=== PATIENT | female | born 2000 | race Two or more races ===

== ENCOUNTER 2021-09-26 02:34 | Emergency (ER) | payer OTHER ==
--- NOTE | 2021-09-26 02:57 | ED Physician Documentation ---
History of Present Illness - Stated complaint Stated Complaint: L SHOULDER INJ - Chief complaint Chief Complaint: Trauma Ext - History obtained from History obtained from: Patient - Additonal information Additional information: The patient comes to the emergency department chief complaint of left shoulder pain and stiffness after an injury while moving a large dresser today. Patient states that while she was moving and holding the dresser, she felt a "give" in her shoulder and felt pain all over the left shoulder but more so in the anterior area. Patient states this happened around 1900 yesterday and that she has been holding the shoulder tensely since. She states that now, hurts all over her shoulder plus up into her neck and around her shoulder blade as well. She denies any feeling of popping or cracking. No prior injury to the shoulder. Review of Systems Ten Systems: 10 systems reviewed and negative Constitutional: reports: Reviewed and negative Eyes: reports: Reviewed and negative Ears: reports: Reviewed and negative Nose: reports: Reviewed and negative Throat: reports: Reviewed and negative Cardiac: reports: Reviewed and negative Respiratory: reports: Reviewed and negative GI: reports: Reviewed and negative : reports: Reviewed and negative Skin: reports: Reviewed and negative Musculoskeletal: reports: Joint pain Neurologic: reports: Reviewed and negative Psychiatric: reports: Reviewed and negative Endocrine: reports: Reviewed and negative Immunocompromised: reports: Reviewed and negative PD PAST MEDICAL HISTORY - Past Medical History Past Medical History: Yes Psych: Anxiety - Past Surgical History Past Surgical History: No - Present Medications Home Medications: Ambulatory Orders Medication Instructions Recorded Confirmed Cyclobenzaprine [Flexeril] 10 mg PO TID PRN #20 tablet 09/26/21 HYDROcod/ACETAM 5/325 [[place] 5/325] 1 - 2 tablet PO Q6H PRN #7 tablet 09/26/21 - Allergies Allergies/Adverse Reactions: Allergies Allergy/AdvReac Type Severity Reaction Status Date / Time No Known Drug Allergies Allergy Verified 09/26/21 02:42 - Social History Does the pt smoke?: Yes Smoking Status: Current every day smoker Does the pt drink ETOH?: No Does the pt have substance abuse?: No - Immunizations Immunizations are current?: Yes - POLST Patient has POLST: No PD ED PE NORMAL - Vitals Vital signs reviewed: Yes - General General: Alert and oriented X 3, No acute distress, Well developed/nourished, Other (The patient appears moderately uncomfortable but otherwise no apparent distress.) - HEENT HEENT: Atraumatic, PERRL, EOMI, Moist mucous membranes - Neck Neck: Supple, no meningeal sign, No bony TTP - Cardiac Cardiac: Strong equal pulses - Respiratory Respiratory: No respiratory distress - Derm Derm: Normal color, Warm and dry, No rash - Extremities Extremities: No deformity, No edema, Other (Left upper extremity held in flexion at the elbow and internal rotation. Tension throughout trapezius muscle with diffuse tenderness over entire shoulder. No bony deformity. Significant decrease in range of motion in all directions, secondary to pain.) - Neuro Neuro: Alert and oriented X 3 - Psych Psych: Normal mood, Normal affect Results - Vitals Vitals: Vital Signs - 24 hr 09/26/21 02:39 Temperature 36.7 C Heart Rate 107 H Respiratory 16 Rate Blood Pressure 140/96 H O2 Saturation 100 Oxygen O2 Source Room air - Rads (name of study) L shoulder XR Radiology: Final report received, EMP read indepedently, See rad report (neg) PD MEDICAL DECISION MAKING - ED course Complexity details: reviewed results, re-evaluated patient, considered differential, d/w patient ED course: The patient was treated symptomatically in the emergency department and sent for x-ray of the left shoulder. This was found to be negative. The patient was placed in a sling, though the importance of regular and frequent range of motion was emphasized to her. We discussed that if her shoulder is not noticeably better in the next 2 weeks, she should follow-up with her primary care physician to discuss further evaluation and management. Departure - Departure Disposition: 01 Home, Self Care Clinical Impression: Shoulder sprain Qualifiers: Encounter type: initial encounter Shoulder sprain type: unspecified sprain Laterality: left Qualified Code(s): S43.402A - Unspecified sprain of left shoulder joint, initial encounter Condition: Stable Instructions: ED Sprain Shoulder Prescriptions: Cyclobenzaprine [Flexeril] 10 mg PO TID PRN #20 tablet PRN Reason: Spasms HYDROcod/ACETAM 5/325 [[place] 5/325] 1 - 2 tablet PO Q6H PRN #7 tablet PRN Reason: Pain Comments: Your x-rays look great. The most likely scenario is that you have sprained your shoulder while attempting to move the heavy dresser this evening. This can cause pain and inflammation which can make it difficult to want to move your shoulder. However, it is very important that you regularly take your arm out of the sling and try to move it as best you can. You can do this by walking your fingers up the wall or by doing bent pot stirs like we have discussed. You may take the muscle relaxer and pain medication as needed for the next few days to help things loosen up. Please also ice your shoulder at least a couple of times a day to help with inflammation. You should make a follow-up appointment to see your doctor in case the shoulder is not significantly improved in the next couple of weeks. Please do not lift anything heavy until your shoulder is feeling completely back to normal. Your prescriptions have been electronically transmitted to [facility] in [place].
[2021-09-26] MEDS: HYDROcod/ACETAM 5/325 MG TABLET PO STA (03:05)
[2021-09-26] MEDS: CYCLOBENZAPRINE 10 MG TABLET PO STA (03:05)
[2021-09-26] MEDS: KETOROLAC 60 MG/2 ML VIAL IM STA (03:06)
[2021-09-26 03:32] VITALS: BP 130/72
--- NOTE | 2021-09-26 07:52 | XRAY Report ---
PROCEDURE: Shoulder 3 View LT INDICATIONS: injury/pain TECHNIQUE: 3 views of the shoulder were acquired. COMPARISON: None. FINDINGS: Bones: No fractures or dislocations. No suspicious bony lesions. Visualized ribs appear intact. Soft tissues: No suspicious soft tissue calcifications. IMPRESSION: Left shoulder without acute radiographic abnormalities or significant degenerative fortune e. No significant discrepancy with initial interpretation by overnight radiologist. Reviewed by: Wilder Dodge MD on 09/26/2021 7:51 AM PDT Approved by: Wilder Dodge MD on 09/26/2021 7:51 AM PDT Station ID: [id number]
== END 2021-09-26 03:31 | disposition home or self-care (01) ==
LOC: ED 02:34
DX: S43.402A Unspecified sprain of left shoulder joint, initial encounter (principal); X50.0XXA Overexertion from strenuous movement or load, initial encounter; Y93.89 Activity, other specified; F17.200 Nicotine dependence, unspecified, uncomplicated
CPT/HCPCS: 73030; 96372; 99282; 99283; A9270

== ENCOUNTER 2021-10-04 15:54 | Outpatient (CLI) | payer OTHER ==
[2021-10-04 18:37] LABS: BASOPHILS # (AUTO) 0.1 10^3/uL (0.0-0.1); BASOPHILS % (AUTO) 0.8 %; EOSINOPHILS % (AUTO) 0.4 %; HCT - HEMATOCRIT 41.4 % (37.0-47.0); HGB - HEMOGLOBIN 14.2 g/dL (12.0-16.0); LYMPHOCYTES # (AUTO) 1.6 10^3/uL (1.5-3.5); MEAN CORPUSCULAR HGB CONC 34.3 g/dL (32.0-36.0); MEAN CORPUSCULAR VOLUME 87.3 fL (81.0-99.0); MEAN PLATELET VOLUME 10.6 fL (7.9-10.8); MONOCYTES # (AUTO) 0.7 10^3/uL (0.0-1.0); MONOCYTES % (AUTO) 9.7 %; NEUTROPHILS # (AUTO) 5.1 10^3/uL (1.5-6.6); NEUTROPHILS % (AUTO) 67.8 %; PLT - PLATELET COUNT 434 10^3/uL (130-450); RED BLOOD COUNT 4.74 10^6/uL (4.20-5.40); RED CELL DISTRIBUTION WIDTH 12.3 % (12.0-15.0); WHITE BLOOD COUNT 7.5 x10^3/uL (4.8-10.8)
[2021-10-04 18:48] LABS: ALBUMIN 4.9 g/dL (3.2-5.5); ALBUMIN/GLOBULIN RATIO 1.4 (1.0-2.2); BILIRUBIN,TOTAL 1.4 mg/dL (0.2-1.0); CALCIUM 9.9 mg/dL (8.5-10.3); CREATININE 0.6 mg/dL (0.4-1.0); POTASSIUM 3.7 mmol/L (3.5-5.0); TOTAL PROTEIN 8.5 g/dL (6.7-8.2)
[2021-10-04 21:40] LABS: BILIRUBIN,URINE NEGATIVE (NEGATIVE); GLUCOSE, URINE (UA) NEGATIVE (NEGATIVE); KETONES,URINE (UA) NEGATIVE (NEGATIVE); LEUKOCYTE ESTERASE, URINE TRACE (NEGATIVE); NITRITE,URINE NEGATIVE (NEGATIVE); OCCULT BLOOD,URINE NEGATIVE (NEGATIVE); PH,URINE 7.5 PH (5.0-7.5); PROTEIN,URINE NEGATIVE (NEGATIVE); UROBILINOGEN,URINE 0.2 (NORMAL) E.U./dL (NORMAL)
[2021-10-04 21:47] LABS: CLARITY,URINE CLEAR (CLEAR)
[2021-10-04 21:48] LABS: BACTERIA,URINE Rare /HPF (None Seen); RBC,URINE 0-5 /HPF (0-5); SQUAMOUS EPITHELIAL CELL,UR FEW Squamous (<= Few); WBC,URINE 0-3 /HPF (0-5)
== END 2021-10-04 23:59 | disposition home or self-care (01) ==
LOC: LAB.N 15:54
PROVIDERS: ATTEND Physician Assistant
DX: R53.83 Other fatigue (principal); Z20.822 Contact with and (suspected) exposure to COVID-19
CPT/HCPCS: 36415; 80053; 81001; 84443; 85025; 87086

== ENCOUNTER 2021-10-05 20:11 | Emergency (ER) | payer OTHER ==
[2021-10-05] MEDS ORDERED: LORazepam 2 MG/ML VIAL IVP STA (20:44)
--- OUTSIDE RECORDS SUMMARY | 2021-10-05 20:48 | EXTERNAL MEDICAL SUMMARY RPT | Continuity of Care Document ---
:2001 Author Organization [facility] Address [address] [place] [address] Phone Care Team Providers Name Role Phone Chan JOAQUIN Unavailable Unavailable Jorje JOAQUIN Unavailable Unavailable RN, Ashley Graham Unavailable Unavailable Allergies No information. Encounters No information. Medications date description facility 20211004 meclizine All 20211004 ondansetron All 20211004 meclizine All 20211004 ondansetron All 20211004 meclizine All 20211004 ondansetron All Problems date description facility 20211004 COMPREHENSIVE METABOLIC PANEL All 20211004 CBC W/Diff/Plt All 20211004 Urinalysis with Microscopic Exam, Cultu re in Indicated All 20211004 TSH All 20211004 Other malaise and fatigue All 20211004 Other fatigue All 20211004 Fatigue All 20211004 COVID19 Testing All Procedures date description facility 20211004 COVID19 Testing All 20211004 CBC W/Diff/Plt All 20211004 POC HCG All 20211004 TSH All 20211004 POC URINALYSIS DIP All 20211004 COMPREHENSIVE METABOLIC PANEL All 20211004 COVID19 Testing All 20211004 CBC W/Diff/Plt All 20211004 POC HCG All 20211004 TSH All 20211004 POC URINALYSIS DIP All 20211004 COMPREHENSIVE METABOLIC PANEL All 20211004 COVID19 Testing All 20211004 CBC W/Diff/Plt All 20211004 POC HCG All 20211004 TSH All 20211004 POC URINALYSIS DIP All 20211004 COMPREHENSIVE METABOLIC PANEL All Results test status date ordered by attending specimen blu e urea_nitrogen_blood unknown 20211004 unknown unknown unk nown Erythrocytes_volume_in unknown 20211004 unknown unknown unknown _Blood_by_Automated_cou nt Erythrocyte_distributi unknown 20211004 unknown unknown unknown on_width_Ratio_by_Autom ated_count MCV_Entitic_volume_by_ unknown 20211004 unknown unknown unknown Automated_count MCH_Entitic_mass_by_Au unknown 20211004 unknown unknown unknown tomated_count Platelets_volume_in_Bl unknown 20211004 unknown unknown unknown ood_by_Automated_count Platelet_mean_volume_E unknown 20211004 unknown unknown unknown ntitic_volume_in_Blood_ by_[facility] neutrophil_count_blood unknown 20211004 unknown unknown unknown monocyte_count_blood unknown 20211004 unknown unknown un known lymphocyte_count_blood unknown 20211004 unknown unknown unknown Hemoglobin_Mass_volume unknown 20211004 unknown unknown unknown _in_Blood eosinophil_count_blood unknown 20211004 unknown unknown unknown Basophils_volume_in_Bl unknown 20211004 unknown unknown unknown ood_by_Manual_count leukocyte_count_blood unknown 20211004 unknown unknown u nknown erythrocyte_RBC_count unknown 20211004 unknown unknown u nknown Leukocytes_volume_in_B unknown 20211004 unknown unknown unknown lood_by_Automated_count Glomerular_Filtration_ unknown 20211004 unknown unknown unknown rate platelet_count unknown 20211004 unknown unknown unknown hemoglobin_blood unknown 20211004 unknown unknown unknow n hematocrit_blood unknown 20211004 unknown unknown unknow n potassium_blood unknown 20211004 unknown unknown unknown WBC_urine_on_microscop unknown 20211004 unknown unknown unknown y Urobilinogen_Presence_ unknown 20211004 unknown unknown unknown in_Urine_by_Test_strip Specific_gravity_of_Ur unknown 20211004 unknown unknown unknown ine_by_Test_strip pH_of_Urine_by_Test_st unknown 20211004 unknown unknown unknown rip Nitrite_Presence_in_Ur unknown 20211004 unknown unknown unknown ine_by_Test_strip Leukocyte_esterase_Pre unknown 20211004 unknown unknown unknown sence_in_Urine_by_Test_ strip Ketones_Mass_volume_in unknown 20211004 unknown unknown unknown _Urine_by_Test_strip Glucose_Mass_volume_in unknown 20211004 unknown unknown unknown _Urine_by_Test_strip Color_of_Urine unknown 20211004 unknown unknown unknown Bilirubin.total_Presen unknown 20211004 unknown unknown unknown ce_in_Urine_by_Test_str ip Appearance_of_Urine unknown 20211004 unknown unknown unk nown clarity_urine_point unknown 20211004 unknown unknown unk nown pH_study_of_acidity unknown 20211004 unknown unknown unk nown Glomerular_filtration_r unknown 20211004 unknown unknown unknown ate_1.73_sq_M.predicted _among_non-blacks_Volum e_Rate_Area_in_Serum_Pl asma_or_Blood_by_Creati nine-based_formula_MDRD _ Hematocrit_Volume_Frac unknown 20211004 unknown unknown unknown tion_of_Blood_by_Automa ted_count bilirubin_serum_total unknown 20211004 unknown unknown u nknown alanine_aminotransfera unknown 20211004 unknown unknown unknown se_SGPT_serum carbon_dioxide_serum_t unknown 20211004 unknown unknown unknown otal aspartate_aminotransfe unknown 20211004 unknown unknown unknown rase_SGOT_serum protein_total_serum unknown 20211004 unknown unknown unk nown blood_glucose unknown 20211004 unknown unknown unknown potassium_blood unknown 20211004 unknown unknown unknown glucose_urine unknown 20211004 unknown unknown unknown appearance_urine unknown 20211004 unknown unknown unknow n leukocyte_esterase_uri unknown 20211004 unknown unknown unknown ne_by_dipstick urobilinogen_urine_sem unknown 20211004 unknown unknown unknown iquantitative_dipstick_ specific_gravity_urine unknown 20211004 unknown unknown unknown pH_urine_semiquantitat unknown 20211004 unknown unknown unknown sean nitrite_urine_semiquan unknown 20211004 unknown unknown unknown titative ketones_urine_by_test_ unknown 20211004 unknown unknown unknown strip bilirubin_urine unknown 20211004 unknown unknown unknown mean_corpuscular_volum unknown 20211004 unknown unknown unknown e_RBC Urea_nitrogen_Mass_vol unknown 20211004 unknown unknown unknown ume_in_Serum_or_Plasma globulin_serum unknown 20211004 unknown unknown unknown Thyrotropin_Units_volu unknown 20211004 unknown unknown unknown me_in_Serum_or_Plasma alkaline_phosphatase_s unknown 20211004 unknown unknown unknown burak Sodium_Moles_volume_in unknown 20211004 unknown unknown unknown _Serum_or_Plasma thyroid_stimulating_ho unknown 20211004 unknown unknown unknown rmone_serum Protein_Mass_volume_in unknown 20211004 unknown unknown unknown _Serum_or_Plasma eosinophil_count_blood unknown 20211004 unknown unknown unknown anion_gap_serum unknown 20211004 unknown unknown unknown mean_platelet_volume unknown 20211004 unknown unknown un known urine_color unknown 20211004 unknown unknown unknown human_chorionic_gonado unknown 20211004 unknown unknown unknown tropin_urine_qualitativ e_urine_pregnancy_test_ basophil_count_blood unknown 20211004 unknown unknown un known monocyte_count_blood unknown 20211004 unknown unknown un known lymphocyte_count_blood unknown 20211004 unknown unknown unknown neutrophil_count_blood unknown 20211004 unknown unknown unknown Glucose_Mass_volume_in unknown 20211004 unknown unknown unknown _Urine Glucose_Mass_volume_in unknown 20211004 unknown unknown unknown _Serum_or_Plasma Globulin_Mass_volume_i unknown 20211004 unknown unknown unknown n_Serum Creatinine_Mass_volume unknown 20211004 unknown unknown unknown _in_Serum_or_Plasma Choriogonadotropin_pre unknown 20211004 unknown unknown unknown gnancy_test_Presence_in _Urine Chloride_Moles_volume_ unknown 20211004 unknown unknown unknown in_Serum_or_Plasma carbon_dioxide_serum_t unknown 20211004 unknown unknown unknown otal Calcium_Moles_volume_i unknown 20211004 unknown unknown unknown n_Serum_or_Plasma albumin_serum unknown 20211004 unknown unknown unknown Bilirubin.total_Mass_v unknown 20211004 unknown unknown unknown olume_in_Serum_or_Plasm a Aspartate_aminotransfe unknown 20211004 unknown unknown unknown rase_Enzymatic_activity _volume_in_Serum_or_Pla sma Anion_gap_4_in_Serum_o unknown 20211004 unknown unknown unknown r_Plasma creatinine_serum unknown 20211004 unknown unknown unknow n Alkaline_phosphatase_E unknown 20211004 unknown unknown unknown nzymatic_activity_volum e_in_Blood Albumin_Globulin_Mass_ unknown 20211004 unknown unknown unknown Ratio_in_Serum_or_Plasm a Albumin_Presence_in_Ur unknown 20211004 unknown unknown unknown ine Albumin_Mass_volume_in unknown 20211004 unknown unknown unknown _Serum_or_Plasma Alanine_aminotransfera unknown 20211004 unknown unknown unknown se_Enzymatic_activity_v olume_in_Serum_or_Plasm a mean_corpuscular_hemog unknown 20211004 unknown unknown unknown lobin_concentration_rbc RBC_urine_dipstick unknown [id number] unknown unknown unkn own sodium_serum unknown [id number] unknown unknown unknown albumin_globulin_ratio unknown [id number] unknown unknown unknown _serum Erythrocytes_area_in_U unknown [id number] unknown unknown unknown rine_sediment_by_Micros copy_high_power_field chloride_serum unknown [id number] unknown unknown unknown glucose_urine_semiquan unknown [id number] unknown unknown unknown titative protein_urine_semiquan unknown [id number] unknown unknown unknown titative_dipstick_ calcium_serum unknown [id number] unknown unknown unknown mean_corpuscular_hemog unknown [id number] unknown unknown unknown lobin_RBC red_blood_cell_distrib unknown [id number] unknown unknown unknown ution_width WBC_urine_on_microscop unknown [id number] unknown unknown unknown y T unknown [id number] unknown unknown unknown WBC_URINE unknown [id number] unknown unknown unknown UROBILINOGEN_URINE unknown [id number] unknown unknown unkn own SPECIFIC_GRAVITY_URINE unknown [id number] unknown unknown unknown T unknown [id number] unknown unknown unknown T unknown [id number] unknown unknown unknown T unknown [id number] unknown unknown unknown T unknown [id number] unknown unknown unknown T unknown [id number] unknown unknown unknown T unknown [id number] unknown unknown unknown T unknown [id number] unknown unknown unknown T unknown [id number] unknown unknown unknown T unknown [id number] unknown unknown unknown T unknown [id number] unknown unknown unknown T unknown [id number] unknown unknown unknown PH_URINE unknown [id number] unknown unknown unknown NITRITE_URINE unknown [id number] unknown unknown unknown LEUKOCYTE_ESTERASE_URI unknown [id number] unknown unknown unknown NE KETONES_URINE_UA_ unknown [id number] unknown unknown unkno wn GLUCOSE_URINE_UA_ unknown [id number] unknown unknown unkno wn COLOR_URINE unknown [id number] unknown unknown unknown CLARITY_URINE unknown [id number] unknown unknown unknown BILIRUBIN_URINE unknown [id number] unknown unknown unknown T unknown [id number] unknown unknown unknown T unknown [id number] unknown unknown unknown T unknown [id number] unknown unknown unknown T unknown [id number] unknown unknown unknown T unknown [id number] unknown unknown unknown T unknown [id number] unknown unknown unknown NEUTROPHILS_AUTO_ unknown [id number] unknown unknown unkno wn T unknown [id number] unknown unknown unknown T unknown [id number] unknown unknown unknown T unknown [id number] unknown unknown unknown MONOCYTES_AUTO_ unknown [id number] unknown unknown unknown T unknown [id number] unknown unknown unknown T unknown 20211004 unknown unknown unknown T unknown 20211004 unknown unknown unknown T unknown 20211004 unknown unknown unknown LYMPHOCYTES_AUTO_ unknown 20211004 unknown unknown unkno wn T unknown 20211004 unknown unknown unknown T unknown 20211004 unknown unknown unknown T unknown 20211004 unknown unknown unknown T unknown 20211004 unknown unknown unknown T unknown 20211004 unknown unknown unknown T unknown 20211004 unknown unknown unknown T unknown 20211004 unknown unknown unknown GFR_-_MDRD unknown 20211004 unknown unknown unknown T unknown 20211004 unknown unknown unknown EOSINOPHILS_AUTO_ unknown 20211004 unknown unknown unkno wn T unknown 20211004 unknown unknown unknown T unknown 20211004 unknown unknown unknown T unknown 20211004 unknown unknown unknown T unknown 20211004 unknown unknown unknown T unknown 20211004 unknown unknown unknown T unknown 20211004 unknown unknown unknown BILIRUBIN_TOTAL unknown 20211004 unknown unknown unknown BASOPHILS_AUTO_ unknown 20211004 unknown unknown unknown T unknown 20211004 unknown unknown unknown T unknown 20211004 unknown unknown unknown T unknown 20211004 unknown unknown unknown T unknown 20211004 unknown unknown unknown ALT_ALANINE_AMINOTRANS unknown 20211004 unknown unknown unknown FERASE ALKALINE_PHOSPHATASE unknown 20211004 unknown unknown un known T unknown 20211004 unknown unknown unknown T unknown 20211004 unknown unknown unknown ALBUMIN_GLOBULIN_RATIO unknown 20211004 unknown unknown unknown urea_nitrogen_blood unknown 20211004 unknown unknown unk nown Erythrocytes_volume_in unknown 20211004 unknown unknown unknown _Blood_by_Automated_cou nt Erythrocyte_distributi unknown 20211004 unknown unknown unknown on_width_Ratio_by_Autom ated_count MCV_Entitic_volume_by_ unknown 20211004 unknown unknown unknown Automated_count MCH_Entitic_mass_by_Au unknown 20211004 unknown unknown unknown tomated_count Platelets_volume_in_Bl unknown 20211004 unknown unknown unknown ood_by_Automated_count Platelet_mean_volume_E unknown 20211004 unknown unknown unknown ntitic_volume_in_Blood_ by_[facility] neutrophil_count_blood unknown 20211004 unknown unknown unknown monocyte_count_blood unknown 20211004 unknown unknown un known lymphocyte_count_blood unknown 20211004 unknown unknown unknown Hemoglobin_Mass_volume unknown 20211004 unknown unknown unknown _in_Blood eosinophil_count_blood unknown 20211004 unknown unknown unknown Basophils_volume_in_Bl unknown 20211004 unknown unknown unknown ood_by_Manual_count leukocyte_count_blood unknown 20211004 unknown unknown u nknown erythrocyte_RBC_count unknown 20211004 unknown unknown u nknown Leukocytes_volume_in_B unknown 20211004 unknown unknown unknown lood_by_Automated_count Glomerular_Filtration_ unknown 20211004 unknown unknown unknown rate platelet_count unknown 20211004 unknown unknown unknown hemoglobin_blood unknown 20211004 unknown unknown unknow n hematocrit_blood unknown 20211004 unknown unknown unknow n potassium_blood unknown 20211004 unknown unknown unknown WBC_urine_on_microscop unknown 20211004 unknown unknown unknown y Urobilinogen_Presence_ unknown 20211004 unknown unknown unknown in_Urine_by_Test_strip Specific_gravity_of_Ur unknown 20211004 unknown unknown unknown ine_by_Test_strip pH_of_Urine_by_Test_st unknown 20211004 unknown unknown unknown rip Nitrite_Presence_in_Ur unknown 20211004 unknown unknown unknown ine_by_Test_strip Leukocyte_esterase_Pre unknown 20211004 unknown unknown unknown sence_in_Urine_by_Test_ strip Ketones_Mass_volume_in unknown 20211004 unknown unknown unknown _Urine_by_Test_strip Glucose_Mass_volume_in unknown 20211004 unknown unknown unknown _Urine_by_Test_strip Color_of_Urine unknown 20211004 unknown unknown unknown Bilirubin.total_Presen unknown 20211004 unknown unknown unknown ce_in_Urine_by_Test_str ip Appearance_of_Urine unknown 20211004 unknown unknown unk nown clarity_urine_point unknown 20211004 unknown unknown unk nown pH_study_of_acidity unknown 20211004 unknown unknown unk nown Glomerular_filtration_r unknown 20211004 unknown unknown unknown ate_1.73_sq_M.predicted _among_non-blacks_Volum e_Rate_Area_in_Serum_Pl asma_or_Blood_by_Creati nine-based_formula_MDRD _ Hematocrit_Volume_Frac unknown 20211004 unknown unknown unknown tion_of_Blood_by_Automa ted_count bilirubin_serum_total unknown 20211004 unknown unknown u nknown alanine_aminotransfera unknown 20211004 unknown unknown unknown se_SGPT_serum carbon_dioxide_serum_t unknown 20211004 unknown unknown unknown otal aspartate_aminotransfe unknown 20211004 unknown unknown unknown rase_SGOT_serum protein_total_serum unknown 20211004 unknown unknown unk nown blood_glucose unknown 20211004 unknown unknown unknown potassium_blood unknown 20211004 unknown unknown unknown glucose_urine unknown 20211004 unknown unknown unknown appearance_urine unknown 20211004 unknown unknown unknow n leukocyte_esterase_uri unknown 20211004 unknown unknown unknown ne_by_dipstick urobilinogen_urine_sem unknown 20211004 unknown unknown unknown iquantitative_dipstick_ specific_gravity_urine unknown 20211004 unknown unknown unknown pH_urine_semiquantitat unknown 20211004 unknown unknown unknown sean nitrite_urine_semiquan unknown 20211004 unknown unknown unknown titative ketones_urine_by_test_ unknown 20211004 unknown unknown unknown strip bilirubin_urine unknown 20211004 unknown unknown unknown mean_corpuscular_volum unknown 20211004 unknown unknown unknown e_RBC Urea_nitrogen_Mass_vol unknown 20211004 unknown unknown unknown ume_in_Serum_or_Plasma globulin_serum unknown 20211004 unknown unknown unknown Thyrotropin_Units_volu unknown 20211004 unknown unknown unknown me_in_Serum_or_Plasma alkaline_phosphatase_s unknown 20211004 unknown unknown unknown burak Sodium_Moles_volume_in unknown 20211004 unknown unknown unknown _Serum_or_Plasma thyroid_stimulating_ho unknown 20211004 unknown unknown unknown rmone_serum Protein_Mass_volume_in unknown 20211004 unknown unknown unknown _Serum_or_Plasma eosinophil_count_blood unknown 20211004 unknown unknown unknown anion_gap_serum unknown 20211004 unknown unknown unknown mean_platelet_volume unknown 20211004 unknown unknown un known urine_color unknown 20211004 unknown unknown unknown human_chorionic_gonado unknown 20211004 unknown unknown unknown tropin_urine_qualitativ e_urine_pregnancy_test_ basophil_count_blood unknown 20211004 unknown unknown un known monocyte_count_blood unknown 20211004 unknown unknown un known lymphocyte_count_blood unknown 20211004 unknown unknown unknown neutrophil_count_blood unknown 20211004 unknown unknown unknown Glucose_Mass_volume_in unknown 20211004 unknown unknown unknown _Urine Glucose_Mass_volume_in unknown 20211004 unknown unknown unknown _Serum_or_Plasma Globulin_Mass_volume_i unknown 20211004 unknown unknown unknown n_Serum Creatinine_Mass_volume unknown 20211004 unknown unknown unknown _in_Serum_or_Plasma Choriogonadotropin_pre unknown 20211004 unknown unknown unknown gnancy_test_Presence_in _Urine Chloride_Moles_volume_ unknown 20211004 unknown unknown unknown in_Serum_or_Plasma carbon_dioxide_serum_t unknown 20211004 unknown unknown unknown otal Calcium_Moles_volume_i unknown 20211004 unknown unknown unknown n_Serum_or_Plasma albumin_serum unknown 20211004 unknown unknown unknown Bilirubin.total_Mass_v unknown 20211004 unknown unknown unknown olume_in_Serum_or_Plasm a Aspartate_aminotransfe unknown 20211004 unknown unknown unknown rase_Enzymatic_activity _volume_in_Serum_or_Pla sma Anion_gap_4_in_Serum_o unknown 20211004 unknown unknown unknown r_Plasma creatinine_serum unknown 20211004 unknown unknown unknow n Alkaline_phosphatase_E unknown 20211004 unknown unknown unknown nzymatic_activity_volum e_in_Blood Albumin_Globulin_Mass_ unknown 20211004 unknown unknown unknown Ratio_in_Serum_or_Plasm a Albumin_Presence_in_Ur unknown 20211004 unknown unknown unknown ine Albumin_Mass_volume_in unknown 20211004 unknown unknown unknown _Serum_or_Plasma Alanine_aminotransfera unknown 20211004 unknown unknown unknown se_Enzymatic_activity_v olume_in_Serum_or_Plasm a mean_corpuscular_hemog unknown 20211004 unknown unknown unknown lobin_concentration_rbc RBC_urine_dipstick unknown 20211004 unknown unknown unkn own sodium_serum unknown 20211004 unknown unknown unknown albumin_globulin_ratio unknown 20211004 unknown unknown unknown _serum Erythrocytes_area_in_U unknown 20211004 unknown unknown unknown rine_sediment_by_Micros copy_high_power_field chloride_serum unknown 20211004 unknown unknown unknown glucose_urine_semiquan unknown 20211004 unknown unknown unknown titative protein_urine_semiquan unknown 20211004 unknown unknown unknown titative_dipstick_ calcium_serum unknown 20211004 unknown unknown unknown mean_corpuscular_hemog unknown [id number] unknown unknown unknown lobin_RBC red_blood_cell_distrib unknown [id number] unknown unknown unknown ution_width WBC_urine_on_microscop unknown [id number] unknown unknown unknown y T unknown [id number] unknown unknown unknown WBC_URINE unknown [id number] unknown unknown unknown UROBILINOGEN_URINE unknown [id number] unknown unknown unkn own SPECIFIC_GRAVITY_URINE unknown [id number] unknown unknown unknown T unknown [id number] unknown unknown unknown T unknown [id number] unknown unknown unknown T unknown [id number] unknown unknown unknown T unknown [id number] unknown unknown unknown T unknown [id number] unknown unknown unknown T unknown [id number] unknown unknown unknown T unknown [id number] unknown unknown unknown T unknown [id number] unknown unknown unknown T unknown [id number] unknown unknown unknown T unknown [id number] unknown unknown unknown T unknown [id number] unknown unknown unknown PH_URINE unknown [id number] unknown unknown unknown NITRITE_URINE unknown [id number] unknown unknown unknown LEUKOCYTE_ESTERASE_URI unknown [id number] unknown unknown unknown NE KETONES_URINE_UA_ unknown [id number] unknown unknown unkno wn GLUCOSE_URINE_UA_ unknown [id number] unknown unknown unkno wn COLOR_URINE unknown [id number] unknown unknown unknown CLARITY_URINE unknown [id number] unknown unknown unknown BILIRUBIN_URINE unknown [id number] unknown unknown unknown T unknown [id number] unknown unknown unknown T unknown [id number] unknown unknown unknown T unknown [id number] unknown unknown unknown T unknown [id number] unknown unknown unknown T unknown [id number] unknown unknown unknown T unknown [id number] unknown unknown unknown NEUTROPHILS_AUTO_ unknown [id number] unknown unknown unkno wn T unknown [id number] unknown unknown unknown T unknown [id number] unknown unknown unknown T unknown [id number] unknown unknown unknown MONOCYTES_AUTO_ unknown [id number] unknown unknown unknown T unknown [id number] unknown unknown unknown T unknown [id number] unknown unknown unknown T unknown [id number] unknown unknown unknown T unknown [id number] unknown unknown unknown LYMPHOCYTES_AUTO_ unknown [id number] unknown unknown unkno wn T unknown [id number] unknown unknown unknown T unknown [id number] unknown unknown unknown T unknown [id number] unknown unknown unknown T unknown [id number] unknown unknown unknown T unknown [id number] unknown unknown unknown T unknown [id number] unknown unknown unknown T unknown [id number] unknown unknown unknown GFR_-_MDRD unknown [id number] unknown unknown unknown T unknown [id number] unknown unknown unknown EOSINOPHILS_AUTO_ unknown [id number] unknown unknown unkno wn T unknown 20211004 unknown unknown unknown T unknown 20211004 unknown unknown unknown T unknown 20211004 unknown unknown unknown T unknown 20211004 unknown unknown unknown T unknown 20211004 unknown unknown unknown T unknown 20211004 unknown unknown unknown BILIRUBIN_TOTAL unknown 20211004 unknown unknown unknown BASOPHILS_AUTO_ unknown 20211004 unknown unknown unknown T unknown 20211004 unknown unknown unknown T unknown 20211004 unknown unknown unknown T unknown 20211004 unknown unknown unknown T unknown 20211004 unknown unknown unknown ALT_ALANINE_AMINOTRANS unknown 20211004 unknown unknown unknown FERASE ALKALINE_PHOSPHATASE unknown 20211004 unknown unknown un known T unknown 20211004 unknown unknown unknown T unknown 20211004 unknown unknown unknown ALBUMIN_GLOBULIN_RATIO unknown 20211004 unknown unknown unknown Urobilinogen_Presence_ unknown 20211004 unknown unknown unknown in_Urine_by_Test_strip Specific_gravity_of_Ur unknown 20211004 unknown unknown unknown ine_by_Test_strip pH_of_Urine_by_Test_st unknown 20211004 unknown unknown unknown rip Nitrite_Presence_in_Ur unknown 20211004 unknown unknown unknown ine_by_Test_strip Leukocyte_esterase_Pre unknown 20211004 unknown unknown unknown sence_in_Urine_by_Test_ strip Ketones_Mass_volume_in unknown 20211004 unknown unknown unknown _Urine_by_Test_strip Glucose_Mass_volume_in unknown 20211004 unknown unknown unknown _Urine_by_Test_strip Color_of_Urine unknown 20211004 unknown unknown unknown Bilirubin.total_Presen unknown 20211004 unknown unknown unknown ce_in_Urine_by_Test_str ip Appearance_of_Urine unknown 20211004 unknown unknown unk nown appearance_urine unknown 20211004 unknown unknown unknow n leukocyte_esterase_uri unknown 20211004 unknown unknown unknown ne_by_dipstick urobilinogen_urine_sem unknown 20211004 unknown unknown unknown iquantitative_dipstick_ specific_gravity_urine unknown 20211004 unknown unknown unknown pH_urine_semiquantitat unknown 20211004 unknown unknown unknown sean nitrite_urine_semiquan unknown 20211004 unknown unknown unknown titative ketones_urine_by_test_ unknown 20211004 unknown unknown unknown strip bilirubin_urine unknown [id number] unknown unknown unknown urine_color unknown 20211004 unknown unknown unknown human_chorionic_gonado unknown 20211004 unknown unknown unknown tropin_urine_qualitativ e_urine_pregnancy_test_ Choriogonadotropin_pre unknown 20211004 unknown unknown unknown gnancy_test_Presence_in _Urine Albumin_Presence_in_Ur unknown 20211004 unknown unknown unknown ine RBC_urine_dipstick unknown 20211004 unknown unknown unkn own Erythrocytes_area_in_U unknown 20211004 unknown unknown unknown rine_sediment_by_Micros copy_high_power_field glucose_urine_semiquan unknown 20211004 unknown unknown unknown titative protein_urine_semiquan unknown 20211004 unknown unknown unknown titative_dipstick_ facility observation status value reference units lab code abn ormal line range notes All urea_nitroge unknown 8 unknown mg/dL _9 unknown unknown n_blood All Erythrocytes unknown 4.74 10 unknown _789-8 unknow n unknown _volume_in_Bl 6/UL ood_by_Automa ted_count All Erythrocyte_ unknown 12.3 unknown % _788-0 unknown unknown distribution_ width_Ratio_b y_Automated_c ount All MCV_Entitic_ unknown 87.3 unknown fL _787-2 unknown unknown volume_by_Aut omated_count All MCH_Entitic_ unknown 30.0 unknown pg _785-6 unknown unknown mass_by_Autom ated_count All Platelets_vo unknown 434 10 unknown _777-3 unknown unknown lume_in_Blood 3/UL _by_Automated _count All Platelet_mea unknown 10.6 unknown fL _776-5 unknown unknown n_volume_Enti tic_volume_in _Blood_by_Ree s-Ric All neutrophil_c unknown 5.1 10 unknown _752-6 unknown unknown ount_blood 3/UL All monocyte_cou unknown 0.7 10 unknown _743-5 unknown unknown nt_blood 3/UL All lymphocyte_c unknown 1.6 10 unknown _732-8 unknown unknown ount_blood 3/UL All Hemoglobin_M unknown 14.2 unknown g/dL _718-7 unknown unknown ass_volume_in _Blood All eosinophil_c unknown 0.0 10 unknown _712-0 unknown unknown ount_blood 3/UL All Basophils_vo unknown 0.1 10 unknown _705-4 unknown unknown lume_in_Blood 3/UL _by_Manual_co unt All leukocyte_co unknown 7.5 X10 unknown _68 unknow n unknown unt_blood 3/UL All erythrocyte_ unknown 4.74 10 unknown _67 unknow n unknown RBC_count 6/UL All Leukocytes_v unknown 7.5 X10 unknown _6690-2 unkno wn unknown olume_in_Bloo 3/UL d_by_Automate d_count All Glomerular_F unknown 127 unknown mL/mi _66455 unknown unknown iltration_rat n e All platelet_cou unknown 434 10 unknown _66 unknown unknown nt 3/UL All hemoglobin_b unknown 14.2 unknown g/dL _65 unknown unknown lood All hematocrit_b unknown 41.4 unknown % _64 unknown unknown lood All potassium_bl unknown 3.7 unknown meq/L _6298-4 unknow n unknown ood All WBC_urine_on unknown 0-3 /HPF unknown _5821-4 unkn own unknown _microscopy All Urobilinogen unknown 0.2 unknown _5818-0 unknow n unknown _Presence_in_ (NORMAL) Urine_by_Test _strip All Specific_gra unknown 1.010 unknown _5811-5 unknow n unknown vity_of_Urine _by_Test_stri p All pH_of_Urine_ unknown 8 unknown _5803-2 unknow n unknown by_Test_strip All Nitrite_Pres unknown NEGATIVE unknown _5802-4 unkn own unknown ence_in_Urine _by_Test_stri p All Leukocyte_es unknown TRACE unknown _5799-2 unknow n unknown terase_Presen ce_in_Urine_b y_Test_strip All Ketones_Mass unknown NEGATIVE unknown _5797-6 unkn own unknown _volume_in_Ur ine_by_Test_s trip All Glucose_Mass unknown negative unknown _5792-7 unkn own unknown _volume_in_Ur ine_by_Test_s trip All Color_of_Uri unknown YELLOW unknown _5778-6 unknow n unknown ne All Bilirubin.to unknown NEGATIVE unknown _5770-3 unkn own unknown tal_Presence_ in_Urine_by_T est_strip All Appearance_o unknown clear unknown _5767-9 unknow n unknown f_Urine All clarity_urin unknown CLEAR unknown _5589 unknown unknown e_point All pH_study_of_ unknown 7.5 unknown _51641 unknown unknown acidity All Glomerular_fi unknown 127 unknown mL/mi _48642-3 unkno wn unknown ltration_rate n _1.73_sq_M.pr edicted_among _non-blacks_V olume_Rate_Ar ea_in_Serum_P lasma_or_Bloo d_by_Creatini ne-based_form ula_MDRD_ All Hematocrit_V unknown 41.4 unknown % _4544-3 unknow n unknown olume_Fractio n_of_Blood_by _Automated_co unt All bilirubin_se unknown 1.4 unknown mg/dL _43 unknown unknown rum_total All alanine_amin unknown 13 unknown U/L _40 unknown unknown otransferase_ SGPT_serum All carbon_dioxi unknown 26 unknown mmol/ _3962 unknown unknown de_serum_tota L l All aspartate_am unknown 18 unknown U/L _39 unknown unknown inotransferas e_SGOT_serum All protein_tota unknown 8.5 unknown g/dL _36 unknown unknown l_serum All blood_glucos unknown 100 unknown mg/dL _3565 unknown unknown e All potassium_bl unknown 3.7 unknown meq/L _3483 unknown unknown ood All glucose_urin unknown NEGATIVE unknown _3369 unkno wn unknown e mg/dL All appearance_u unknown clear unknown _328 unknown unknown rine All leukocyte_es unknown TRACE unknown _327 unknown unknown terase_urine_ by_dipstick All urobilinogen unknown 0.2 unknown _326 unknown unknown _urine_semiqu (NORMAL) antitative_di pstick_ All specific_gra unknown 1.010 unknown _325 unknown unknown vity_urine All pH_urine_sem unknown 8 unknown _324 unknown unknown iquantitative All nitrite_urin unknown NEGATIVE unknown _323 unkno wn unknown e_semiquantit ative All ketones_urin unknown NEGATIVE unknown _322 unkno wn unknown e_by_test_str ip All bilirubin_ur unknown NEGATIVE unknown _319 unkno wn unknown ine All mean_corpusc unknown 87.3 unknown fL _315 unknown unknown ular_volume_R BC All Urea_nitroge unknown 8 unknown mg/dL _3094-0 unknow n unknown n_Mass_volume _in_Serum_or_ Plasma All globulin_ser unknown 3.6 unknown _3059 unknown unknown um All Thyrotropin_ unknown 0.53 unknown u[iU] _3016-3 unknow n unknown Units_volume_ /mL in_Serum_or_P lasma All alkaline_pho unknown 53 unknown U/L _3 unknown unknown sphatase_seru m All Sodium_Moles unknown 138 unknown mmol/ _2951-2 unknow n unknown _volume_in_Se L rum_or_Plasma All thyroid_stim unknown 0.53 unknown u[iU] _29 unknown unknown ulating_hormo /mL ne_serum All Protein_Mass unknown 8.5 unknown g/dL _2885-2 unknow n unknown _volume_in_Se rum_or_Plasma All eosinophil_c unknown 0.0 10 unknown _285 unknown unknown ount_blood 3/UL All anion_gap_se unknown 9.0 unknown _279 unknown unknown rum All mean_platele unknown 10.6 unknown fL _2784 unknown unknown t_volume All urine_color unknown YELLOW unknown _2751 unknown unknown All human_chorio unknown Negative unknown _2578 unkno wn unknown nic_gonadotro pin_urine_qua litative_urin e_pregnancy_t est_ All basophil_cou unknown 0.1 10 unknown _2427 unknown unknown nt_blood 3/UL All monocyte_cou unknown 0.7 10 unknown _2422 unknown unknown nt_blood 3/UL All lymphocyte_c unknown 1.6 10 unknown _2420 unknown unknown ount_blood 3/UL All neutrophil_c unknown 5.1 10 unknown _2418 unknown unknown ount_blood 3/UL All Glucose_Mass unknown NEGATIVE unknown _2350-7 unkn own unknown _volume_in_Ur mg/dL ine All Glucose_Mass unknown 100 unknown mg/dL _2345-7 unknow n unknown _volume_in_Se rum_or_Plasma All Globulin_Mas unknown 3.6 unknown _2336-6 unknow n unknown s_volume_in_S burak All Creatinine_M unknown 0.6 unknown mg/dL _2160-0 unknow n unknown ass_volume_in _Serum_or_Pla sma All Choriogonado unknown Negative unknown _2105- unkn own unknown tropin_pregna ncy_test_Pres ence_in_Urine All Chloride_Mol unknown 103 unknown mmol/ _2074-0 unknow n unknown es_volume_in_ L Serum_or_Plas ma All carbon_dioxi unknown 26 unknown mmol/ _2027- unknow n unknown de_serum_tota L l All Calcium_Mole unknown 9.9 unknown mg/dL _1999- unknow n unknown s_volume_in_S erum_or_Plasm a All albumin_seru unknown 4.9 unknown g/dL _2 unknown unknown m All Bilirubin.to unknown 1.4 unknown mg/dL _1974- unknow n unknown tal_Mass_volu me_in_Serum_o r_Plasma All Aspartate_am unknown 18 unknown U/L _1919- unknow n unknown inotransferas e_Enzymatic_a ctivity_volum e_in_Serum_or _Plasma All Anion_gap_4_ unknown 9.0 unknown _1863-0 unknow n unknown in_Serum_or_P lasma All creatinine_s unknown 0.6 unknown mg/dL _18 unknown unknown burak All Alkaline_pho unknown 53 unknown U/L _1783-0 unknow n unknown sphatase_Enzy matic_activit y_volume_in_B lood All Albumin_Glob unknown 1.4 unknown _1759-0 unknow n unknown ulin_Mass_Rat io_in_Serum_o r_Plasma All Albumin_Pres unknown negative unknown _1753-3 unkn own unknown ence_in_Urine All Albumin_Mass unknown 4.9 unknown g/dL _1751-7 unknow n unknown _volume_in_Se rum_or_Plasma All Alanine_amin unknown 13 unknown U/L _1742-6 unknow n unknown otransferase_ Enzymatic_act ivity_volume_ in_Serum_or_P lasma All mean_corpusc unknown 34.3 unknown g/dL _17029 unknown unknown ular_hemoglob in_concentrat ion_rbc All RBC_urine_di unknown non-hemol unknown _1700005 un known unknown pstick yzed trace All sodium_serum unknown 138 unknown mmol/ _159 unknown unknown L All albumin_glob unknown 1.4 unknown _146 unknown unknown ulin_ratio_se rum All Erythrocytes unknown non-hemol unknown _13945-1 un known unknown _area_in_Urin yzed trace e_sediment_by _Microscopy_h igh_power_fie ld All chloride_ser unknown 103 unknown mmol/ _13 unknown unknown um L All glucose_urin unknown negative unknown _123 unkno wn unknown e_semiquantit ative All protein_urin unknown negative unknown _118 unkno wn unknown e_semiquantit ative_dipstic k_ All calcium_seru unknown 9.9 unknown mg/dL _11 unknown unknown m All mean_corpusc unknown 30.0 unknown pg _1031 unknown unknown ular_hemoglob in_RBC All red_blood_ce unknown 12.3 unknown % _1030 unknown unknown ll_distributi on_width All WBC_urine_on unknown 0-3 /HPF unknown _1016 unkno wn unknown _microscopy All T unknown 7.5 X10 unknown WBC unknown unk nown 3/UL All WBC_URINE unknown 0-3 /HPF unknown UWBC unknown unknown All UROBILINOGEN unknown 0.2 unknown UUROBIL unknow n unknown _URINE (NORMAL) All SPECIFIC_GRA unknown 1.010 unknown USG unknown unknown VITY_URINE All T unknown 0-3 /HPF unknown UR_WBC unknown un known All T unknown 0.2 unknown UR_URO unknown unkn own (NORMAL) All T unknown 1.010 unknown UR_SG unknown unkn own All T unknown 7.5 unknown UR_PH unknown unkn own All T unknown NEGATIVE unknown UR_NIT unknown un known All T unknown TRACE unknown UR_LEU_E unknown un known STERASE All T unknown NEGATIVE unknown UR_KETO_ unknown unknown UA_ All T unknown NEGATIVE unknown UR_GLU unknown un known mg/dL All T unknown YELLOW unknown UR_COLOR unknown un known All T unknown CLEAR unknown UR_CLARI unknown un known TY All T unknown NEGATIVE unknown UR_BILI unknown u nknown All PH_URINE unknown 7.5 unknown UPH unknown un known All NITRITE_URIN unknown NEGATIVE unknown UNITRITE unk nown unknown E All LEUKOCYTE_ES unknown TRACE unknown ULEUK unknown unknown TERASE_URINE All KETONES_URIN unknown NEGATIVE unknown UKET unkno wn unknown E_UA_ All GLUCOSE_URIN unknown NEGATIVE unknown UGLUC unkno wn unknown E_UA_ mg/dL All COLOR_URINE unknown YELLOW unknown UCOL unknown unknown All CLARITY_URIN unknown CLEAR unknown UCLAR unknown unknown E All BILIRUBIN_UR unknown NEGATIVE unknown UBIL unkno wn unknown INE All T unknown 0.53 unknown u[iU] TSH unknown unkn own /mL All T unknown 1.4 unknown mg/dL TOTAL_BI unknown un known LI All T unknown 12.3 unknown % RDW unknown unkn own All T unknown 4.74 10 unknown RBC unknown unk nown 6/UL All T unknown 8.5 unknown g/dL PRO_TOTA unknown un known L All T unknown 434 10 unknown PLT unknown unkn own 3/UL All NEUTROPHILS_ unknown 5.1 10 unknown NE_ unknown unknown AUTO_ 3/UL All T unknown 5.1 10 unknown NEUT_AUT unknown un known 3/UL O_ All T unknown 138 unknown mmol/ NA unknown unkn own L All T unknown 10.6 unknown fL MPV unknown unkn own All MONOCYTES_AU unknown 0.7 10 unknown MO_ unknown unknown TO_ 3/UL All T unknown 0.7 10 unknown MONO_AUT unknown un known 3/UL O_ All T unknown 87.3 unknown fL MCV unknown unkn own All T unknown 34.3 unknown g/dL MCHC unknown unkn own All T unknown 30.0 unknown pg MCH unknown unkn own All LYMPHOCYTES_ unknown 1.6 10 unknown LY_ unknown unknown AUTO_ 3/UL All T unknown 1.6 10 unknown LYMPH_AU unknown un known 3/UL TO_ All T unknown 3.7 unknown meq/L K unknown unkn own All T unknown 14.2 unknown g/dL HGB unknown unkn own All T unknown 41.4 unknown % HCT unknown unkn own All T unknown 100 unknown mg/dL GLU unknown unkn own All T unknown 3.6 unknown GLOB unknown unkn own All T unknown 127 unknown mL/mi GFR_-_MD unknown un known n RD All GFR_-_MDRD unknown 127 unknown mL/mi GFR unknown unknown n All T unknown 9.0 unknown GAP unknown unkn own All EOSINOPHILS_ unknown 0.0 10 unknown EO_ unknown unknown AUTO_ 3/UL All T unknown 0.0 10 unknown EOS_AUTO unknown un known 3/UL _ All T unknown 0.6 unknown mg/dL CREAT unknown unkn own All T unknown 26 unknown mmol/ CO2 unknown unkn own L All T unknown 103 unknown mmol/ CL unknown unkn own L All T unknown 9.9 unknown mg/dL CA unknown unkn own All T unknown 8 unknown mg/dL BUN unknown unkn own All BILIRUBIN_TO unknown 1.4 unknown mg/dL BILIT unknown unknown SAVANNA All BASOPHILS_AU unknown 0.1 10 unknown BA_ unknown unknown TO_ 3/UL All T unknown 0.1 10 unknown BASO_AUT unknown un known 3/UL O_ All T unknown 1.4 unknown A_G_RATI unknown un known O All T unknown 18 unknown U/L AST unknown unkn own All T unknown 13 unknown U/L ALT_SGPT unknown un known _ All ALT_ALANINE_ unknown 13 unknown U/L ALT unknown unknown AMINOTRANSFER ASE All ALKALINE_PHO unknown 53 unknown U/L ALP unknown unknown SPHATASE All T unknown 53 unknown U/L ALK_PHOS unknown un known All T unknown 4.9 unknown g/dL ALB unknown unkn own All ALBUMIN_GLOB unknown 1.4 unknown AGRATIO unknow n unknown ULIN_RATIO All urea_nitroge unknown 8 unknown mg/dL _9 unknown unknown n_blood All Erythrocytes unknown 4.74 10 unknown _789-8 unknow n unknown _volume_in_Bl 6/UL ood_by_Automa ted_count All Erythrocyte_ unknown 12.3 unknown % _788-0 unknown unknown distribution_ width_Ratio_b y_Automated_c ount All MCV_Entitic_ unknown 87.3 unknown fL _787-2 unknown unknown volume_by_Aut omated_count All MCH_Entitic_ unknown 30.0 unknown pg _785-6 unknown unknown mass_by_Autom ated_count All Platelets_vo unknown 434 10 unknown _777-3 unknown unknown lume_in_Blood 3/UL _by_Automated _count All Platelet_mea unknown 10.6 unknown fL _776-5 unknown unknown n_volume_Enti tic_volume_in _Blood_by_Ree s-Ric All neutrophil_c unknown 5.1 10 unknown _752-6 unknown unknown ount_blood 3/UL All monocyte_cou unknown 0.7 10 unknown _743-5 unknown unknown nt_blood 3/UL All lymphocyte_c unknown 1.6 10 unknown _732-8 unknown unknown ount_blood 3/UL All Hemoglobin_M unknown 14.2 unknown g/dL _718-7 unknown unknown ass_volume_in _Blood All eosinophil_c unknown 0.0 10 unknown _712-0 unknown unknown ount_blood 3/UL All Basophils_vo unknown 0.1 10 unknown _705-4 unknown unknown lume_in_Blood 3/UL _by_Manual_co unt All leukocyte_co unknown 7.5 X10 unknown _68 unknow n unknown unt_blood 3/UL All erythrocyte_ unknown 4.74 10 unknown _67 unknow n unknown RBC_count 6/UL All Leukocytes_v unknown 7.5 X10 unknown _6690-2 unkno wn unknown olume_in_Bloo 3/UL d_by_Automate d_count All Glomerular_F unknown 127 unknown mL/mi _66455 unknown unknown iltration_rat n e All platelet_cou unknown 434 10 unknown _66 unknown unknown nt 3/UL All hemoglobin_b unknown 14.2 unknown g/dL _65 unknown unknown lood All hematocrit_b unknown 41.4 unknown % _64 unknown unknown lood All potassium_bl unknown 3.7 unknown meq/L _6298-4 unknow n unknown ood All WBC_urine_on unknown 0-3 /HPF unknown _5821-4 unkn own unknown _microscopy All Urobilinogen unknown 0.2 unknown _5818-0 unknow n unknown _Presence_in_ (NORMAL) Urine_by_Test _strip All Specific_gra unknown 1.010 unknown _5811-5 unknow n unknown vity_of_Urine _by_Test_stri p All pH_of_Urine_ unknown 8 unknown _5803-2 unknow n unknown by_Test_strip All Nitrite_Pres unknown NEGATIVE unknown _5802-4 unkn own unknown ence_in_Urine _by_Test_stri p All Leukocyte_es unknown TRACE unknown _5799-2 unknow n unknown terase_Presen ce_in_Urine_b y_Test_strip All Ketones_Mass unknown NEGATIVE unknown _5797-6 unkn own unknown _volume_in_Ur ine_by_Test_s trip All Glucose_Mass unknown negative unknown _5792-7 unkn own unknown _volume_in_Ur ine_by_Test_s trip All Color_of_Uri unknown YELLOW unknown _5778-6 unknow n unknown ne All Bilirubin.to unknown NEGATIVE unknown _5770-3 unkn own unknown tal_Presence_ in_Urine_by_T est_strip All Appearance_o unknown clear unknown _5767-9 unknow n unknown f_Urine All clarity_urin unknown CLEAR unknown _5589 unknown unknown e_point All pH_study_of_ unknown 7.5 unknown _51641 unknown unknown acidity All Glomerular_fi unknown 127 unknown mL/mi _48642-3 unkno wn unknown ltration_rate n _1.73_sq_M.pr edicted_among _non-blacks_V olume_Rate_Ar ea_in_Serum_P lasma_or_Bloo d_by_Creatini ne-based_form ula_MDRD_ All Hematocrit_V unknown 41.4 unknown % _4544-3 unknow n unknown olume_Fractio n_of_Blood_by _Automated_co unt All bilirubin_se unknown 1.4 unknown mg/dL _43 unknown unknown rum_total All alanine_amin unknown 13 unknown U/L _40 unknown unknown otransferase_ SGPT_serum All carbon_dioxi unknown 26 unknown mmol/ _3962 unknown unknown de_serum_tota L l All aspartate_am unknown 18 unknown U/L _39 unknown unknown inotransferas e_SGOT_serum All protein_tota unknown 8.5 unknown g/dL _36 unknown unknown l_serum All blood_glucos unknown 100 unknown mg/dL _3565 unknown unknown e All potassium_bl unknown 3.7 unknown meq/L _3483 unknown unknown ood All glucose_urin unknown NEGATIVE unknown _3369 unkno wn unknown e mg/dL All appearance_u unknown clear unknown _328 unknown unknown rine All leukocyte_es unknown TRACE unknown _327 unknown unknown terase_urine_ by_dipstick All urobilinogen unknown 0.2 unknown _326 unknown unknown _urine_semiqu (NORMAL) antitative_di pstick_ All specific_gra unknown 1.010 unknown _325 unknown unknown vity_urine All pH_urine_sem unknown 8 unknown _324 unknown unknown iquantitative All nitrite_urin unknown NEGATIVE unknown _323 unkno wn unknown e_semiquantit ative All ketones_urin unknown NEGATIVE unknown _322 unkno wn unknown e_by_test_str ip All bilirubin_ur unknown NEGATIVE unknown _319 unkno wn unknown ine All mean_corpusc unknown 87.3 unknown fL _315 unknown unknown ular_volume_R BC All Urea_nitroge unknown 8 unknown mg/dL _3094-0 unknow n unknown n_Mass_volume _in_Serum_or_ Plasma All globulin_ser unknown 3.6 unknown _3059 unknown unknown um All Thyrotropin_ unknown 0.53 unknown u[iU] _3016-3 unknow n unknown Units_volume_ /mL in_Serum_or_P lasma All alkaline_pho unknown 53 unknown U/L _3 unknown unknown sphatase_seru m All Sodium_Moles unknown 138 unknown mmol/ _2951-2 unknow n unknown _volume_in_Se L rum_or_Plasma All thyroid_stim unknown 0.53 unknown u[iU] _29 unknown unknown ulating_hormo /mL ne_serum All Protein_Mass unknown 8.5 unknown g/dL _2885-2 unknow n unknown _volume_in_Se rum_or_Plasma All eosinophil_c unknown 0.0 10 unknown _285 unknown unknown ount_blood 3/UL All anion_gap_se unknown 9.0 unknown _279 unknown unknown rum All mean_platele unknown 10.6 unknown fL _2784 unknown unknown t_volume All urine_color unknown YELLOW unknown _2751 unknown unknown All human_chorio unknown Negative unknown _2578 unkno wn unknown nic_gonadotro pin_urine_qua litative_urin e_pregnancy_t est_ All basophil_cou unknown 0.1 10 unknown _2427 unknown unknown nt_blood 3/UL All monocyte_cou unknown 0.7 10 unknown _2422 unknown unknown nt_blood 3/UL All lymphocyte_c unknown 1.6 10 unknown _2420 unknown unknown ount_blood 3/UL All neutrophil_c unknown 5.1 10 unknown _2418 unknown unknown ount_blood 3/UL All Glucose_Mass unknown NEGATIVE unknown _2350-7 unkn own unknown _volume_in_Ur mg/dL ine All Glucose_Mass unknown 100 unknown mg/dL _2345-7 unknow n unknown _volume_in_Se rum_or_Plasma All Globulin_Mas unknown 3.6 unknown _2336-6 unknow n unknown s_volume_in_S burak All Creatinine_M unknown 0.6 unknown mg/dL _2160-0 unknow n unknown ass_volume_in _Serum_or_Pla sma All Choriogonado unknown Negative unknown _6-3 unkn own unknown tropin_pregna ncy_test_Pres ence_in_Urine All Chloride_Mol unknown 103 unknown mmol/ _2074-0 unknow n unknown es_volume_in_ L Serum_or_Plas ma All carbon_dioxi unknown 26 unknown mmol/ _2027- unknow n unknown de_serum_tota L l All Calcium_Mole unknown 9.9 unknown mg/dL _1999- unknow n unknown s_volume_in_S erum_or_Plasm a All albumin_seru unknown 4.9 unknown g/dL _2 unknown unknown m All Bilirubin.to unknown 1.4 unknown mg/dL _1974- unknow n unknown tal_Mass_volu me_in_Serum_o r_Plasma All Aspartate_am unknown 18 unknown U/L _1919-8 unknow n unknown inotransferas e_Enzymatic_a ctivity_volum e_in_Serum_or _Plasma All Anion_gap_4_ unknown 9.0 unknown _1863-0 unknow n unknown in_Serum_or_P lasma All creatinine_s unknown 0.6 unknown mg/dL _18 unknown unknown burak All Alkaline_pho unknown 53 unknown U/L _1783-0 unknow n unknown sphatase_Enzy matic_activit y_volume_in_B lood All Albumin_Glob unknown 1.4 unknown _1759-0 unknow n unknown ulin_Mass_Rat io_in_Serum_o r_Plasma All Albumin_Pres unknown negative unknown _1753-3 unkn own unknown ence_in_Urine All Albumin_Mass unknown 4.9 unknown g/dL _1751-7 unknow n unknown _volume_in_Se rum_or_Plasma All Alanine_amin unknown 13 unknown U/L _1742-6 unknow n unknown otransferase_ Enzymatic_act ivity_volume_ in_Serum_or_P lasma All mean_corpusc unknown 34.3 unknown g/dL _17029 unknown unknown ular_hemoglob in_concentrat ion_rbc All RBC_urine_di unknown non-hemol unknown _1700005 un known unknown pstick yzed trace All sodium_serum unknown 138 unknown mmol/ _159 unknown unknown L All albumin_glob unknown 1.4 unknown _146 unknown unknown ulin_ratio_se rum All Erythrocytes unknown non-hemol unknown _13945-1 un known unknown _area_in_Urin yzed trace e_sediment_by _Microscopy_h igh_power_fie ld All chloride_ser unknown 103 unknown mmol/ _13 unknown unknown um L All glucose_urin unknown negative unknown _123 unkno wn unknown e_semiquantit ative All protein_urin unknown negative unknown _118 unkno wn unknown e_semiquantit ative_dipstic k_ All calcium_seru unknown 9.9 unknown mg/dL _11 unknown unknown m All mean_corpusc unknown 30.0 unknown pg _1031 unknown unknown ular_hemoglob in_RBC All red_blood_ce unknown 12.3 unknown % _1030 unknown unknown ll_distributi on_width All WBC_urine_on unknown 0-3 /HPF unknown _1016 unkno wn unknown _microscopy All T unknown 7.5 X10 unknown WBC unknown unk nown 3/UL All WBC_URINE unknown 0-3 /HPF unknown UWBC unknown unknown All UROBILINOGEN unknown 0.2 unknown UUROBIL unknow n unknown _URINE (NORMAL) All SPECIFIC_GRA unknown 1.010 unknown USG unknown unknown VITY_URINE All T unknown 0-3 /HPF unknown UR_WBC unknown un known All T unknown 0.2 unknown UR_URO unknown unkn own (NORMAL) All T unknown 1.010 unknown UR_SG unknown unkn own All T unknown 7.5 unknown UR_PH unknown unkn own All T unknown NEGATIVE unknown UR_NIT unknown un known All T unknown TRACE unknown UR_LEU_E unknown un known STERASE All T unknown NEGATIVE unknown UR_KETO_ unknown unknown UA_ All T unknown NEGATIVE unknown UR_GLU unknown un known mg/dL All T unknown YELLOW unknown UR_COLOR unknown un known All T unknown CLEAR unknown UR_CLARI unknown un known TY All T unknown NEGATIVE unknown UR_BILI unknown u nknown All PH_URINE unknown 7.5 unknown UPH unknown un known All NITRITE_URIN unknown NEGATIVE unknown UNITRITE unk nown unknown E All LEUKOCYTE_ES unknown TRACE unknown ULEUK unknown unknown TERASE_URINE All KETONES_URIN unknown NEGATIVE unknown UKET unkno wn unknown E_UA_ All GLUCOSE_URIN unknown NEGATIVE unknown UGLUC unkno wn unknown E_UA_ mg/dL All COLOR_URINE unknown YELLOW unknown UCOL unknown unknown All CLARITY_URIN unknown CLEAR unknown UCLAR unknown unknown E All BILIRUBIN_UR unknown NEGATIVE unknown UBIL unkno wn unknown INE All T unknown 0.53 unknown u[iU] TSH unknown unkn own /mL All T unknown 1.4 unknown mg/dL TOTAL_BI unknown un known LI All T unknown 12.3 unknown % RDW unknown unkn own All T unknown 4.74 10 unknown RBC unknown unk nown 6/UL All T unknown 8.5 unknown g/dL PRO_TOTA unknown un known L All T unknown 434 10 unknown PLT unknown unkn own 3/UL All NEUTROPHILS_ unknown 5.1 10 unknown NE_ unknown unknown AUTO_ 3/UL All T unknown 5.1 10 unknown NEUT_AUT unknown un known 3/UL O_ All T unknown 138 unknown mmol/ NA unknown unkn own L All T unknown 10.6 unknown fL MPV unknown unkn own All MONOCYTES_AU unknown 0.7 10 unknown MO_ unknown unknown TO_ 3/UL All T unknown 0.7 10 unknown MONO_AUT unknown un known 3/UL O_ All T unknown 87.3 unknown fL MCV unknown unkn own All T unknown 34.3 unknown g/dL MCHC unknown unkn own All T unknown 30.0 unknown pg MCH unknown unkn own All LYMPHOCYTES_ unknown 1.6 10 unknown LY_ unknown unknown AUTO_ 3/UL All T unknown 1.6 10 unknown LYMPH_AU unknown un known 3/UL TO_ All T unknown 3.7 unknown meq/L K unknown unkn own All T unknown 14.2 unknown g/dL HGB unknown unkn own All T unknown 41.4 unknown % HCT unknown unkn own All T unknown 100 unknown mg/dL GLU unknown unkn own All T unknown 3.6 unknown GLOB unknown unkn own All T unknown 127 unknown mL/mi GFR_-_MD unknown un known n RD All GFR_-_MDRD unknown 127 unknown mL/mi GFR unknown unknown n All T unknown 9.0 unknown GAP unknown unkn own All EOSINOPHILS_ unknown 0.0 10 unknown EO_ unknown unknown AUTO_ 3/UL All T unknown 0.0 10 unknown EOS_AUTO unknown un known 3/UL _ All T unknown 0.6 unknown mg/dL CREAT unknown unkn own All T unknown 26 unknown mmol/ CO2 unknown unkn own L All T unknown 103 unknown mmol/ CL unknown unkn own L All T unknown 9.9 unknown mg/dL CA unknown unkn own All T unknown 8 unknown mg/dL BUN unknown unkn own All BILIRUBIN_TO unknown 1.4 unknown mg/dL BILIT unknown unknown SAVANNA All BASOPHILS_AU unknown 0.1 10 unknown BA_ unknown unknown TO_ 3/UL All T unknown 0.1 10 unknown BASO_AUT unknown un known 3/UL O_ All T unknown 1.4 unknown A_G_RATI unknown un known O All T unknown 18 unknown U/L AST unknown unkn own All T unknown 13 unknown U/L ALT_SGPT unknown un known _ All ALT_ALANINE_ unknown 13 unknown U/L ALT unknown unknown AMINOTRANSFER ASE All ALKALINE_PHO unknown 53 unknown U/L ALP unknown unknown SPHATASE All T unknown 53 unknown U/L ALK_PHOS unknown un known All T unknown 4.9 unknown g/dL ALB unknown unkn own All ALBUMIN_GLOB unknown 1.4 unknown AGRATIO unknow n unknown ULIN_RATIO All Urobilinogen unknown negative unknown _5818-0 unkn own unknown _Presence_in_ Urine_by_Test _strip All Specific_gra unknown 1.005 unknown _5811-5 unknow n unknown vity_of_Urine _by_Test_stri p All pH_of_Urine_ unknown 8 unknown _5803-2 unknow n unknown by_Test_strip All Nitrite_Pres unknown negative unknown _5802-4 unkn own unknown ence_in_Urine _by_Test_stri p All Leukocyte_es unknown 1+ unknown _5799-2 unknow n unknown terase_Presen ce_in_Urine_b y_Test_strip All Ketones_Mass unknown negative unknown _5797-6 unkn own unknown _volume_in_Ur ine_by_Test_s trip All Glucose_Mass unknown negative unknown _5792-7 unkn own unknown _volume_in_Ur ine_by_Test_s trip All Color_of_Uri unknown yellow unknown _5778-6 unknow n unknown ne All Bilirubin.to unknown negative unknown _5770-3 unkn own unknown tal_Presence_ in_Urine_by_T est_strip All Appearance_o unknown clear unknown _5767-9 unknow n unknown f_Urine All appearance_u unknown clear unknown _328 unknown unknown rine All leukocyte_es unknown 1+ unknown _327 unknown unknown terase_urine_ by_dipstick All urobilinogen unknown negative unknown _326 unkno wn unknown _urine_semiqu antitative_di pstick_ All specific_gra unknown 1.005 unknown _325 unknown unknown vity_urine All pH_urine_sem unknown 8 unknown _324 unknown unknown iquantitative All nitrite_urin unknown negative unknown _323 unkno wn unknown e_semiquantit ative All ketones_urin unknown negative unknown _322 unkno wn unknown e_by_test_str ip All bilirubin_ur unknown negative unknown _319 unkno wn unknown ine All urine_color unknown yellow unknown _2751 unknown unknown All human_chorio unknown Negative unknown _2578 unkno wn unknown nic_gonadotro pin_urine_qua litative_urin e_pregnancy_t est_ All Choriogonado unknown Negative unknown _6-3 unkn own unknown tropin_pregna ncy_test_Pres ence_in_Urine All Albumin_Pres unknown negative unknown _1753-3 unkn own unknown ence_in_Urine All RBC_urine_di unknown non-hemol unknown _[id number] un known unknown pstick yzed trace All Erythrocytes unknown non-hemol unknown _13945-1 un known unknown _area_in_Urin yzed trace e_sediment_by _Microscopy_h igh_power_fie ld All glucose_urin unknown negative unknown _123 unkno wn unknown e_semiquantit ative All protein_urin unknown negative unknown _118 unkno wn unknown e_semiquantit ative_dipstic k_ Vital Signs date measurement value source 20211004 weight_standard 95 lb 20211004 weight_metric 43.09 kg 20211004 temperature_standard 98.7 F 20211004 temperature_metric 37.06 C 20211004 respiration_rate 16 /min 20211004 heart_rate 75 /min 20211004 BP_systolic 149 mm[Hg] 20211004 BP_systolic 145 mm[Hg] 20211004 BP_systolic 127 mm[Hg] 20211004 BP_diastolic 86 mm[Hg] 20211004 BP_diastolic 84 mm[Hg] 20211004 BP_diastolic 101 mm[Hg] 20211004 weight_standard 95 lb 20211004 weight_metric 43.09 kg 20211004 temperature_standard 98.7 F 20211004 temperature_metric 37.06 C 20211004 respiration_rate 16 /min 20211004 heart_rate 75 /min 20211004 BP_systolic 149 mm[Hg] 20211004 BP_systolic 145 mm[Hg] 20211004 BP_systolic 127 mm[Hg] 20211004 BP_diastolic 86 mm[Hg] 20211004 BP_diastolic 84 mm[Hg] 20211004 BP_diastolic 101 mm[Hg] 20211004 weight_standard 95 lb 20211004 weight_metric 43.09 kg 20211004 temperature_standard 98.7 F 20211004 temperature_metric 37.06 C 20211004 respiration_rate 16 /min 20211004 heart_rate 75 /min 20211004 BP_systolic 149 mm[Hg] 20211004 BP_systolic 145 mm[Hg] 20211004 BP_systolic 127 mm[Hg] 20211004 BP_diastolic 86 mm[Hg] 20211004 BP_diastolic 84 mm[Hg] 20211004 BP_diastolic 101 mm[Hg]
--- NOTE | 2021-10-05 20:54 | ED Physician Documentation ---
History of Present Illness - Stated complaint Stated Complaint: DIZZY,BLURRY VISION,SHAKY,NAUSEA - Chief complaint Chief Complaint: General - History obtained from History obtained from: Patient - History of Present Illness Timing: How many weeks ago (1) Pain level max: 8 Pain level now: 8 - Additonal information Additional information: Patient is a 21-year-old female who presents to the emergency department complaining of headaches and dizziness since falling about a week ago and hitting her head when she fell down the stairs. She was seen at a walk-in clinic yesterday, given meclizine and Zofran but states that she feels worse. No loss of consciousness. No seizure activity. She states she is not on any medications at home. She states she has felt very anxious recently. Has not taken anything for the pain. No fevers. No chills. No cough. No congestion. Denies any possibility of . Is not breast-feeding. The dizziness does not change with movement, sitting or standing. She states it is constant like the room is spinning around her. Review of Systems Constitutional: denies: Fever, Chills Nose: denies: Rhinorrhea / runny nose, Congestion Cardiac: denies: Chest pain / pressure Respiratory: denies: Dyspnea, Cough GI: reports: Nausea. denies: Vomiting, Diarrhea Skin: denies: Rash Musculoskeletal: denies: Neck pain, Back pain Neurologic: reports: Headache (gradual onset, holocranial) PD PAST MEDICAL HISTORY - Past Medical History Past Medical History: Yes Psych: Anxiety - Past Surgical History Past Surgical History: No - Present Medications Home Medications: Ambulatory Orders Medication Instructions Recorded Confirmed LORazepam [Ativan] 1 mg PO Q6H PRN #7 tablet 10/05/21 Meclizine HCl [Antivert] 25 mg PO TID PRN 10/05/21 10/05/21 Ondansetron HCl 4 mg PO Q6HR PRN 10/05/21 10/05/21 Promethazine [Phenergan] 25 mg PO Q6H PRN #10 tab 10/05/21 - Allergies Allergies/Adverse Reactions: Allergies Allergy/AdvReac Type Severity Reaction Status Date / Time No Known Drug Allergies Allergy Verified 10/05/21 20:21 - Social History Does the pt smoke?: Yes Smoking Status: Current every day smoker Does the pt drink ETOH?: No Does the pt have substance abuse?: No - Immunizations Immunizations are current?: Yes - POLST Patient has POLST: No PD ED PE NORMAL - Vitals Vital signs reviewed: Yes - General General: Alert and oriented X 3, No acute distress - HEENT HEENT: Moist mucous membranes - Neck Neck: Supple, no meningeal sign - Cardiac Cardiac: RRR - Respiratory Respiratory: No respiratory distress, Clear bilaterally - Abdomen Abdomen: Soft, Non tender, Non distended - Derm Derm: Warm and dry - Neuro Neuro: Alert and oriented X 3 - Psych Psych: Other (anxious appearing) Results - Vitals Vitals: Vital Signs - 24 hr 10/05/21 10/05/21 10/05/21 20:15 20:59 22:01 Temperature 36.7 C Heart Rate 107 H 89 69 Respiratory 16 15 16 Rate Blood Pressure 151/95 H 138/88 H 111/76 O2 Saturation 100 100 98 Oxygen O2 Source Room air - Rads (name of study) Head CT Radiology: Final report received, EMP read contemporaneously, See rad report (No acute intracranial abnormality) PD MEDICAL DECISION MAKING - ED course Complexity details: reviewed results, re-evaluated patient, considered differential, d/w patient ED course: 21-year-old female presents to the emergency department with dizziness after a head injury. Likely has a concussion. No acute findings on head CT. No nystagmus on examination. GCS 15. Cranial nerves intact. Normal cerebellar test. Normal gait. Feels better after Ativan, droperidol, Phenergan, Benadryl and Toradol. Headache resolved. Dizziness improved. We will have her follow- up with her doctor for further care. May benefit from physical therapy. Patient counseled regarding signs and symptoms for which I believe and urgent re-evaluation would be necessary. Patient with good understanding of and agreement to plan and is comfortable going home at this time This document was made in part using voice recognition software. While efforts are made to proofread this document, sound alike and grammatical errors may occur. Departure - Departure Disposition: 01 Home, Self Care Clinical Impression: Vertigo Concussion Qualifiers: Encounter type: initial encounter Loss of consciousness presence/duration: without LOC Qualified Code(s): S06.0X0A - Concussion without loss of consciousness, initial encounter Condition: Good Instructions: ED Concussion, ED Vertigo Unspecified Follow-Up: Jorje Mendoza PA-C [Primary Care Provider] - Within 1 week Prescriptions: LORazepam [Ativan] 1 mg PO Q6H PRN #7 tablet PRN Reason: anxiety Promethazine [Phenergan] 25 mg PO Q6H PRN #10 tab PRN Reason: Nausea / Vomiting Comments: .It appears that you likely have a concussion and postconcussive symptoms. Please follow-up with your doctor for further care. The Ativan and Phenergan will likely help with the dizziness you should follow-up with your doctor for further care. They can refer you to physical therapy for treatment of the vertigo as well. Your prescriptions were sent to [facility] in [place]. Your head CT does not show any acute abnormalities today.
[2021-10-05] MEDS ORDERED: DROPERIDOL 5 MG/2 ML VIAL IVP STA (21:24)
[2021-10-05] MEDS ORDERED: KETOROLAC 30 MG/ML VIAL IVP STA (21:24)
[2021-10-05] MEDS ORDERED: diphenhydrAMINE INJ 50 MG/ML VIAL IVP STA (21:24)
--- NOTE | 2021-10-05 21:26 | CT Report ---
PROCEDURE: HEAD WO INDICATIONS: fall, head injury, dizzy TECHNIQUE: Noncontrast 5 mm thick angled axial sections acquired from the foramen magnum to the vertex. For rad iation dose reduction, the following was used: automated exposure control, adjustment of mA and/or k V according to patient size. COMPARISON: None. FINDINGS: Image quality: Excellent. CSF spaces: Basal cisterns are patent. No extra-axial fluid collections. Ventricles are normal in size and shape. Brain: No intracranial hemorrhage, mass, or mass effect. Hunter-white matter interface appears preser duyen. Skull and face: Calvarium and visualized facial bones are intact, without suspicious lesions. Sinuses: Visualized sinuses and mastoids are clear. IMPRESSION: 1. No acute intracranial abnormality. Reviewed by: Darius Diaz MD on 10/05/2021 9:24 PM PDT Approved by: Darius Diaz MD on 10/05/2021 9:24 PM PDT Station ID: [id number]
[2021-10-05] MEDS ORDERED: DROPERIDOL 5 MG/2 ML VIAL ONE (21:48)
[2021-10-05 22:19] VITALS: BP 118/102
== END 2021-10-05 22:19 | disposition home or self-care (01) ==
LOC: ED 20:11
DX: S06.0X0A Concussion without loss of consciousness, initial encounter (principal); W10.9XXA Fall (on) (from) unspecified stairs and steps, initial encounter; F17.200 Nicotine dependence, unspecified, uncomplicated
CPT/HCPCS: 36415; 70450; 96374; 96375; 99284; J1200; J2060

== ENCOUNTER 2022-03-18 02:12 | Emergency (ER) | payer OTHER ==
[2022-03-18] MEDS ORDERED: LIDOCAINE PATCH 5% TOP STA (02:36)
[2022-03-18] MEDS ORDERED: SODIUM CHLORIDE 0.9% 1,000 ML IV STA (02:36)
[2022-03-18] MEDS ORDERED: ACETAMINOPHEN 325 MG TABLET PO STA (02:36)
[2022-03-18 03:31] LABS: BASOPHILS % (AUTO) 0.6 %; EOSINOPHILS % (AUTO) 0.4 %; HCT - HEMATOCRIT 38.1 % (37.0-47.0); HGB - HEMOGLOBIN 13.2 g/dL (12.0-16.0); LYMPHOCYTES % (AUTO) 14.4 %; MEAN CORPUSCULAR HEMOGLOBIN 29.7 pg (27.0-31.0); MEAN CORPUSCULAR HGB CONC 34.6 g/dL (32.0-36.0); MEAN CORPUSCULAR VOLUME 85.6 fL (81.0-99.0); MEAN PLATELET VOLUME 9.7 fL (7.9-10.8); MONOCYTES % (AUTO) 11.8 %; NEUTROPHILS % (AUTO) 72.4 %; PLT - PLATELET COUNT 384 10^3/uL (130-450); RED BLOOD COUNT 4.45 10^6/uL (4.20-5.40); RED CELL DISTRIBUTION WIDTH 12.2 % (12.0-15.0); WHITE BLOOD COUNT 14.5 x10^3/uL (4.8-10.8)
[2022-03-18 03:35] LABS: ABNORMAL LYMPHS % (MANUAL) 0 %
[2022-03-18 03:43] LABS: CALCIUM 9.4 mg/dL (8.5-10.3); CREATININE 0.5 mg/dL (0.4-1.0); POTASSIUM 3.4 mmol/L (3.5-5.0)
[2022-03-18 03:55] LABS: BAND NEUTROPHILS % (MANUAL) 1 %; DIFFERENTIAL COMMENT MANUAL DIFFERENTIAL; LYMPHOCYTES # (MANUAL) 3.2 10^3/uL (1.5-3.5); LYMPHOCYTES % (MANUAL) 22 %; MONOCYTES # (MANUAL) 0.7 10^3/uL (0.0-1.0); NEUTROPHILS # (MANUAL) 10.6 10^3/uL (1.5-6.6); PLATELET ESTIMATE, MANUAL NORMAL (130-450,000) (NORMAL); RBC MORPHOLOGY (MULTIPLE) NORMAL APPEARANCE (NORMAL)
[2022-03-18] MEDS ORDERED: POTASSIUM CHLORIDE 20 MEQ TABLET PO STA (04:20)
[2022-03-18] MEDS ORDERED: oxyCODONE/ACET 5/325 Prepack 4 PO STA (04:20)
--- NOTE | 2022-03-18 04:27 | ED Physician Documentation ---
History of Present Illness - Stated complaint Stated Complaint: ALLERGIC REACTION - Chief complaint Chief Complaint: Allergic Rx - History obtained from History obtained from: Patient - Additonal information Additional information: Patient is a 22-year-old female presenting for evaluation of Left arm pain at site of recent COVID vaccination, right hand pain, feeling palpitations. Patient reports getting her first COVID-vaccine this morning (Moderna) and a few hours later started having a headache and feeling a lot of achiness and pain in her left arm.Later in the day she was feeling her heart racing. She tried ibuprofen for symptoms without improvement. She reports her arm is painful with movements. She also reports injury to right ring finger. She is unsure of exactly what happened but jammed it in a door earlier today. Review of Systems Constitutional: denies: Fever Nose: denies: Congestion Throat: denies: Sore throat Cardiac: reports: Palpitations Respiratory: denies: Dyspnea, Cough GI: denies: Abdominal Pain, Vomiting : denies: Dysuria Musculoskeletal: reports: Extremity pain (Right ring finger) Neurologic: reports: Headache PD PAST MEDICAL HISTORY - Past Medical History Psych: Anxiety - Past Surgical History Past Surgical History: No - Present Medications Home Medications: Ambulatory Orders Medication Instructions Recorded Confirmed Oxycodone HCl/Acetaminophen 1 each PO Q6H PRN #10 tablet 03/18/22 [Percocet 5-325 mg Tablet] - Allergies Allergies/Adverse Reactions: Allergies Allergy/AdvReac Type Severity Reaction Status Date / Time No Known Drug Allergies Allergy Verified 03/18/22 02:21 - Social History Does the pt smoke?: Yes Smoking Status: Current every day smoker Does the pt drink ETOH?: No Does the pt have substance abuse?: No - Immunizations Immunizations are current?: Yes - POLST Patient has POLST: No PD ED PE NORMAL - General General: Alert and oriented X 3, No acute distress, Well developed/nourished - HEENT HEENT: Atraumatic, Moist mucous membranes - Neck Neck: Supple, no meningeal sign, No bony TTP - Cardiac Cardiac: No murmur, Strong equal pulses, Other (Tachycardic, regular rhythm) - Respiratory Respiratory: No respiratory distress, Clear bilaterally - Abdomen Abdomen: Non tender, Non distended - Derm Derm: Warm and dry - Extremities Extremities: Other (Tenderness to right distal ring finger, patient is able to almost fully Extend at the DIP, Able to flex at the DIP although with pain, brisk cap refill, Tenderness and swelling to left humerus at vaccination site, no erythema/ warmth/ fluctuance) Results - Vitals Vitals: Vital Signs - 24 hr 03/18/22 03/18/22 02:16 04:21 Temperature 37 C Heart Rate 113 H 68 Respiratory 20 18 Rate Blood Pressure 124/87 H 110/68 O2 Saturation 100 98 Oxygen O2 Source Room air - EKG (time done) 0236 Rate: Rate (enter#) (115) Rhythm: Sinus tachycardia [place]: Normal Ischemia: No: ST elevation c/w ischemia Compare to prior EKG: Old EKG unavailable - Labs Labs: Laboratory Tests 03/18/22 03/18/22 03/18/22 03:25 03:25 03:25 WBC 14.5 H RBC 4.45 Hgb 13.2 Hct 38.1 MCV 85.6 MCH 29.7 MCHC 34.6 RDW 12.2 Plt Count 384 MPV 9.7 Neut # (Auto) Not Reportable Lymph # (Auto) Not Reportable [place] # (Auto) Not Reportable Eos # (Auto) Not Reportable Baso # (Auto) Not Reportable Absolute Nucleated RBC Not Reportable Total Counted 100 Band Neuts % (Manual) 1 Abnorm Lymph % (Manual) 0 Nucleated RBC % Not Reportable Neutrophils # (Manual) 10.6 H Lymphocytes # (Manual) 3.2 Monocytes # (Manual) 0.7 Eosinophils # (Manual) 0.0 Basophils # (Manual) 0.0 Differential Comment MANUAL DIFFERENTIAL Platelet Estimate NORMAL (130-450,000) RBC Morph Micro Appear NORMAL APPEARANCE Sodium 135 Potassium 3.4 L Chloride 104 Carbon Dioxide 22 Anion Gap 9.0 BUN 5 L Creatinine 0.5 Estimated GFR (MDRD) 156 Glucose 100 Calcium 9.4 TSH 2.03 PD MEDICAL DECISION MAKING - ED course Complexity details: reviewed results, re-evaluated patient, d/w patient ED course: Patient presenting for evaluation of 2 concerns. Patient had COVID vaccination today and reports discomfort at vaccination height as well as feeling her heart racing. EKG with sinus tach. Vitals improved after IV fluids. Labs reassuring. Patient able to tolerate p.o. potassium. Vaccination site looks well. There is some slight swelling but no signs of infection or retained foreign body From vaccine needle. She has full range of motion of the extremity. No respiratory symptoms. Normal neuro exam. Patient additionally has Injury to right ring finger. X-ray with distal phalanx fracture and concerns for mallet injury. Patient is almost able to extend fully. She was placed into a splint and counseled on need for close follow-up with primary care doctor and orthopedic doctor. Patient also advised on concerning symptoms to return for In regards to allergic reaction. Departure - Departure Disposition: 01 Home, Self Care Clinical Impression: Mallet finger of right finger(s) Post-vaccination reaction Qualifiers: Encounter type: initial encounter Qualified Code(s): T88.1XXA - Other complications following immunization, not elsewhere classified, initial encounter Condition: Stable Instructions: ED Allergic Reaction General Other, ED Fx Mallet Finger Follow-Up: Luis Shelley MD [Provider Admit Priv/Credential] - [facility] [Provider Group] Prescriptions: Oxycodone HCl/Acetaminophen [Percocet 5-325 mg Tablet] 1 each PO Q6H PRN #10 tablet PRN Reason: pain Comments: You were evaluated for pain to your vaccine site. At this time I do not see signs of an infection. I would continue to use ice or heat to the area as well as gentle massage and making sure that you are moving that arm around As this may help with the inflammation. Your labs were overall reassuring. You were also evaluated for an injury to your right ring finger and you have a fracture that is called a mallet fracture. This does involve your tendon that helps you to straighten your finger. We have applied a splint but you do need close follow-up with your primary care doctor as well as an orthopedic doctor. I have included the name of Carmen templeton gause that you may contact for close follow-up.Please return to the emergency department if you have any worsening symptoms. I have sent a prescription for pain medication to [facility]. I am prescribing a short course of narcotic pain medication for you. These are potentially dangerous and addictive medications that should be used carefully. These medications may constipate you. Take an oahb-acy-hewqplb stool softener (docusate) twice daily with plenty of water while taking these medications. If you go 24 hours without a bowel movement, take fquz-nmc-rfpzvyq miralax, per package instructions. Do not drink or drive while taking these medications. If you received narcotic or sedating medications while in the emergency dep artment, do not drive for 24 hours. Store this medication in a safe, secure place and out of reach of children. It is a violation of federal law to give or sell this medication to another person or to use in a manner other than prescribed. The ED will not refill narcotic prescriptions, including prescriptions lost or stolen. To dispose of unwanted medications: 1. [facility] at [address] in [place] has a medication drop box. They accept prescription medications (in pill form) Sunday through Sunday 9:00 a.m. to 5:00 p.m. 2. The [facility] [employer] accepts prescription medications (in pill form only) for disposal year round. Call for more information. 3. Contact the [facility] for the next [facility] sponsored prescription drug collection event. , [phone], or [phone]; Note that many narcotic pain relievers also contain Tylenol/acetaminophen. Please ensure that your total dose of acetaminophen from all sources does not exceed 3 g (3000 mg) per day. Discharge Date/Time: 03/18/22 04:45
[2022-03-18 04:42] VITALS: BP 110/68
--- NOTE | 2022-03-18 09:11 | XRAY Report ---
PROCEDURE: Hand 3 View RT INDICATIONS: ITS.REASON: ring finger pain TECHNIQUE: 3 views of the hand(s) acquired. COMPARISON: Correlation is made with the accompanying humerus radiographs, 03/18/2022 FINDINGS: Bones: There is an intra-articular fracture seen involving the proximal aspect of the distal phalanx of the fourth finger along the volar aspect. No suspicious bony lesions. Soft tissues: No suspicious soft tissue calcifications. IMPRESSION: Intra-articular fourth finger fracture. Note: No significant discrepancy from the preliminary report. Reviewed by: Ricci Mustafa MD on 03/18/2022 8:10 AM BLAKE Approved by: Ricci Mustafa MD on 03/18/2022 8:10 AM BLAKE Station ID: [id number]
--- NOTE | 2022-03-18 09:12 | XRAY Report ---
PROCEDURE: Humerus LT INDICATIONS: ITS.REASON: pain TECHNIQUE: 2 views of the humerus were acquired. COMPARISON: Correlation is made with the accompanying hand plain films, 03/18/2022. FINDINGS: Bones: No fractures or dislocations. No suspicious bony lesions. Soft tissues: No suspicious soft tissue calcifications. No radiopaque foreign bodies are seen. IMPRESSION: No radiopaque foreign bodies are seen. No acute fracture is seen. Note: No significant discrepancy from the preliminary report. Reviewed by: Ricci Mustafa MD on 03/18/2022 8:10 AM BLAKE Approved by: Ricci Mustafa MD on 03/18/2022 8:10 AM BLAKE Station ID: [id number]
== END 2022-03-18 04:45 | disposition home or self-care (01) ==
LOC: ED 02:12
DX: M20.011 Mallet finger of right finger(s) (principal); R00.2 Palpitations; R51.9 Headache, unspecified; M79.10 Myalgia, unspecified site; T88.1XXA Other complications following immunization, not elsewhere classified, initial encounter; F17.200 Nicotine dependence, unspecified, uncomplicated
CPT/HCPCS: 36415; 73060; 73130; 80048; 84443; 85025; 93005; 96360; 99284; A9270

== ENCOUNTER 2022-03-24 17:52 | Emergency (ER) | payer OTHER ==
[2022-03-24] MEDS ORDERED: MELOXICAM 7.5 MG TABLET PO STA (19:51)
--- NOTE | 2022-03-24 19:59 | ED Physician Documentation ---
History of Present Illness - Stated complaint Stated Complaint: R FINGER PX - Chief complaint Chief Complaint: Trauma Ext - History obtained from History obtained from: Patient - History of Present Illness Timing: How many weeks ago (1) Pain level max: 7 Pain level now: 6 - Additonal information Additional information: 22-year-old female presents to the emergency department stating that she was seen here last week and diagnosed with a avulsion fracture of the distal phalanx of her right fourth finger. She states increasing pain. She states that she is out of pain medication. Has not seen her doctor yet. No numbness or tingling. Worse with movement, better with rest. She is still wearing the foam finger splint. Patient is right-handed. Patient also states the rest of her right hand is starting to hurt as well. The original injury was from being slammed in a door. Review of Systems Constitutional: denies: Fever, Chills Respiratory: denies: Cough : denies: Now [facility] [employer] PAST MEDICAL HISTORY - Past Medical History Past Medical History: Yes Psych: Anxiety - Past Surgical History Past Surgical History: No - Present Medications Home Medications: Ambulatory Orders Medication Instructions Recorded Confirmed Oxycodone HCl/Acetaminophen 1 each PO Q6H PRN #10 tablet 03/18/22 [Percocet 5-325 mg Tablet] Oxycodone HCl/Acetaminophen 1 - 2 each PO Q6H PRN #14 tablet 03/24/22 [Percocet 5-325 mg Tablet] - Allergies Allergies/Adverse Reactions: Allergies Allergy/AdvReac Type Severity Reaction Status Date / Time No Known Drug Allergies Allergy Verified 03/24/22 18:00 - Social History Does the pt smoke?: Yes Smoking Status: Current every day smoker Does the pt drink ETOH?: No Does the pt have substance abuse?: No - Immunizations Immunizations are current?: Yes - POLST Patient has POLST: No PD ED PE NORMAL - Vitals Vital signs reviewed: Yes - General General: Alert and oriented X 3, No acute distress - Derm Derm: Warm and dry - Extremities Extremities: Other (Tender to palpation over the distal aspect of the right fourth digit. No subungual hematoma. Minimal swelling. No ecchymosis. Neurovascular intact. She also has mild diffuse tenderness over the third, fourth, fifth metacarpals. No deformity. ) - Neuro Neuro: Alert and oriented X 3 - Psych Psych: Normal mood, Normal affect Results - Vitals Vitals: Vital Signs - 24 hr 03/24/22 03/24/22 17:57 21:54 Temperature 36.3 C L Heart Rate 106 H 80 Respiratory 16 20 Rate Blood Pressure 142/76 H 106/68 O2 Saturation 100 100 Oxygen O2 Source Room air - Rads (name of study) Right hand x-ray Radiology: Final report received, EMP read contemporaneously, See rad report (Right fourth digit distal phalanx avulsion fracture) PD MEDICAL DECISION MAKING - ED course Complexity details: reviewed results, re-evaluated patient, considered differential, d/w patient ED course: Patient was placed in an extension splint. Bupivacaine was used as a digital block, patient tolerated well. I will prescribe pain medication for home. Counseled regarding the importance of close follow-up with orthopedics to ensure proper functioning of the finger and to ensure proper healing. Neurovascular intact. Patient counseled regarding signs and symptoms for which I believe and urgent re-evaluation would be necessary. Patient with good understanding of and agreement to plan and is comfortable going home at this time This document was made in part using voice recognition software. While efforts are made to proofread this document, sound alike and grammatical errors may occur. Departure - Departure Disposition: 01 Home, Self Care Clinical Impression: Mallet finger of right finger(s) Avulsion fracture of distal phalanx of finger Qualifiers: Encounter type: initial encounter Fracture type: closed Qualified Code(s): S62.639A - Displaced fracture of distal phalanx of unspecified finger, initial encounter for closed fracture Condition: Good Instructions: ED Fx Mallet Finger Follow-Up: Orthopedic Care [Provider Group] - Within 1 week Prescriptions: Oxycodone HCl/Acetaminophen [Percocet 5-325 mg Tablet] 1 - 2 each PO Q6H PRN #14 tablet PRN Reason: pain Comments: Please follow-up with orthopedics for further care. We have changed the type of splint that you were in. The numbing medication should help as well. We will prescribe pain medication for you. This was sent to [facility] in [place]. Please follow-up with your doctor for further care. I am prescribing a short course of narcotic pain medication for you. These are potentially dangerous and addictive medications that should be used carefully. These medications may constipate you. Take an [id number] stool softener (docusate) twice daily with plenty of water while taking these medications. If you go 24 hours without a bowel movement, take [id number] miralax, per package instructions. Do not drink or drive while taking these medications. If you received narcotic or sedating medications while in the emergency department, do not drive for 24 hours. Store this medication in a safe, secure place and out of reach of children. It is a violation of federal law to give or sell this medication to another person or to use in a manner other than prescribed. The ED will not refill narcotic prescriptions, including prescriptions lost or stolen. To dispose of unwanted medications: 1. [facility] at [address] in [place] has a medication drop box. They accept prescription medications (in pill form) Sunday through Sunday 9:00 a.m. to 5:00 p.m. 2. [facility] [employer] accepts prescription medications (in pill form only) for disposal year round. Call for more information. 3. Contact the [facility] for the next [facility] sponsored prescription drug collection event. , [phone], or [phone]; Discharge Date/Time: 03/24/22 21:55
--- NOTE | 2022-03-24 20:20 | XRAY Report ---
PROCEDURE: Hand 3 View RT INDICATIONS: R hand pain, recent fx 4th digit TECHNIQUE: 3 views of the hand(s) acquired. COMPARISON: 03/18/2022 FINDINGS: Bones: Again noted is slightly displaced intra-articular fracture involving dorsal aspect of fourth d istal phalangeal base. No new fracture or dislocation is seen. Finger alignment is unchanged from madai or study.. No suspicious bony lesions. Soft tissues: No suspicious soft tissue calcifications. IMPRESSION: Stable appearance of intra-articular fourth distal phalangeal base fracture with stable right hand al ignment. No new fracture or dislocation. Reviewed by: Melvin Torres MD on 03/24/2022 8:19 PM PDT Approved by: Melvin Torres MD on 03/24/2022 8:19 PM PDT Station ID: [id number]
[2022-03-24] MEDS ORDERED: ROPIVACAINE 0.5% PF 20 ML AMPULE ONE (20:57)
[2022-03-24] MEDS: BUPIVACAINE 0.5% PF 10 ML VIAL SUBQ STA ×2 (21:03→21:45)
[2022-03-24] MEDS ORDERED: ROPIVACAINE 0.5% PF 30 ML VIAL SUBQ STA (21:04)
[2022-03-24] MEDS ORDERED: oxyCODONE 5 MG TABLET PO STA (21:18)
[2022-03-24 21:54] VITALS: BP 106/68
== END 2022-03-24 21:55 | disposition home or self-care (01) ==
LOC: ED 17:52
DX: S62.634D Displaced fracture of distal phalanx of right ring finger, subsequent encounter for fracture with routine healing (principal); X58.XXXD Exposure to other specified factors, subsequent encounter; F17.200 Nicotine dependence, unspecified, uncomplicated
CPT/HCPCS: 73130; 96372; 99282; 99283; A9270